=== PATIENT | female | born 1945 | race Asian ===

== ENCOUNTER → 2017-11-03 | Outpatient (CLI) | payer OTHER, MEDICARE ==
[~2017-11-03] MED LIST: IOVERSOL 350 MG/ML 100 ML VIAL ONE; SODIUM CHLORIDE 0.9% 100 ML ONE
== END | disposition home or self-care (01) ==
LOC: RADMN 08:33
PROVIDERS: ATTEND Internal Medicine
DX: N28.9 Disorder of kidney and ureter, unspecified (principal); K44.9 Diaphragmatic hernia without obstruction or gangrene; R31.9 Hematuria, unspecified
CPT/HCPCS: 74178; J7050; Q9967